=== PATIENT | female | born 1930 | race Caucasian/White ===

== ENCOUNTER 2017-09-17 08:34 | Outpatient (CLI) | payer MEDICARE, OTHER ==
--- NOTE | 2017-09-17 11:42 | RAD ---
RIGHT SECOND DIGIT THREE VIEWS: History: Ulceration. Comparison: None. FINDINGS: There is irregularity and erosion involving the tip of the distal phalanx suggesting osteomyelitis. S oft tissue ulceration is identified. 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 POS: [facility]
--- NOTE | 2017-09-17 15:40 | PRG ---
DATE OF SERVICE: 09/17/2017 CHIEF COMPLAINT: Ulcer to the right second toe. HISTORY OF PRESENT ILLNESS: An 87-year-old female, who presents to clinic today for concern of an ul ceration to the right second toe. She has had this for months. She states that she has been seeing Dr. Bedoya and that they were in some plan to do a repair of the hammertoe of the right second toe. When attempting to do a clearance from her primary care doctor, he was hoping that we can get the wou nd closed before they proceed with the surgery, so she was referred over to me at the wound clinic to evaluate this and see what can be done. Past medical history, past surgical history, medications, allergies, social history, and family histo ry can be reviewed in the paper chart of the wound care clinic. REVIEW OF SYSTEMS: Constitutional: Denies nausea, vomiting, fevers or chills. Neurologic: Denies numbness, tingling or burning sensations to the foot. Integumentary: There is an open sore to the r ight second toe. Musculoskeletal: Relates hammertoe deformities to both feet. PHYSICAL EXAMINATION: VITAL SIGNS: Temperature 97.8, pulse 60 beats per minute, respirations 18 per minute, blood pressure 189/82, blood sugar was 98. VASCULAR EXAM: Dorsalis pedis, posterior tibial pulses are palpable bilaterally. Immediate capillar y refill time to the distal aspect of toes. There is edema noted to the right second toe. No edema noted to the rest of the foot or leg bilaterally. NEUROLOGICAL: Light touch sensation grossly absent on cursory exam in clinic today. DERMATOLOGICAL: Ulceration of the right second toe, distal tip measuring 0.8 cm x 1 cm x 0.4 cm of d epth, does not probe to bone. There is some periwound erythema and edema. There is a hyperkeratotic covering and no drainage noted at this time. No purulence. There are hyperkeratoses on the left se cond toe with no underlying ulceration as well as on the right foot sub first and fifth metatarsal he ads and plantar heel. No underlying ulcerations on any of these areas. MUSCULOSKELETAL: There are rigid hammertoe deformities on the right foot and semi-rigid on the left foot digits 2 through 5. The right first MPJ is fused without any range of motion present. ASSESSMENT: 1. 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 2. Diabetes with peripheral neuropathy. 3. Hammertoe deformities. PLAN: 1. Discussed with the patient her condition and treatment options on the left foot that are semi-rig id. I believe that to decrease the pressure on the tip of the toe, she probably would benefit with a flexor tenotomy procedure. This is a pre-ulcerative lesion on this toe, although it is not open at this time. 2. Full thickness debridement of subcutaneous tissue layer of the right second toe ulceration, remov ing all nonviable tissue, biofilm, and hyperkeratosis from around the wound, utilizing dermal curette and 15 blade. This toe is rigid and would require an arthroplasty or arthrodesis of the proximal in terphalangeal joint in order to straighten, but due to the amount of swelling that she has in this to e, I am going to send her for an x-ray to evaluate for osteomyelitis. If there is any bone infection in this toe, may require amputation. In the meantime, we will start her with Aquacel AG dressing ch anges daily and follow up with her once we get the results of the x-rays. 3. I will have her scheduled appointment to follow up with me in 1 week in this clinic. 4. Pared all remaining calluses and noted there is no underlying ulcerations.
== END 2017-09-17 08:35 | disposition home or self-care (01) ==
LOC: WCC 08:34
PROVIDERS: ATTEND Podiatrist Foot & Ankle Surgery
DX: E11.621 Type 2 diabetes mellitus with foot ulcer (principal); E11.40 Type 2 diabetes mellitus with diabetic neuropathy, unspecified; L97.519 Non-pressure chronic ulcer of other part of right foot with unspecified severity; M20.40 Other hammer toe(s) (acquired), unspecified foot

== ENCOUNTER 2017-09-24 08:46 | Outpatient (CLI) | payer MEDICARE, OTHER ==
--- NOTE | 2017-09-24 12:27 | PRG ---
DATE OF SERVICE: 09/24/2017 SUBJECTIVE: An 87-year-old female who returns today for followup right second toe ulceration. She h as done well this last week with Aquacel AG and bandage. Denies any nausea, vomiting, fevers or chil ls, but had got x-rays after last visit. PHYSICAL EXAMINATION: Exam of the previous wounds. All wounds are closed. No hyperkeratosis. No d rainage, no periwound erythema, edema or warmth. X-RAYS: Reviewed films taken from last week, 3 views of the right toes which do show some erosion to the distal tuft of the distal phalanx of the right second digit, does not proceed any more proximal than the distal phalanx. ASSESSMENT: 1. 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 2. Diabetes with peripheral neuropathy. PLAN: Based on the x-ray findings, I was prepared to discuss with the patient the debridement of the bone including the partial amputation of the right second digit, though the wound having healed and the x-ray appears to be somewhat chronic in nature to the destruction of the bone, which could have b een previously. I am recommending to the patient a 2 month course of Augmentin and close monitoring. Should the wound reopen or become of more actively or acutely infected, then the amputation may be required. She will keep close monitoring on this and let us know if she has any problems, should als o be getting routine care with her nursing executive, Dr. Bedoya and will return to either myself or her bridget uld she have any problems. Also a prescription was given for Augmentin 875 mg 1 by mouth twice a day for 8 weeks, no refills.
[2017-09-28] MEDS ORDERED: Sodium Chloride 0.9% 15 ML NEB ONE (17:46)
== END 2017-09-24 08:47 | disposition home or self-care (01) ==
LOC: WCC 08:46
PROVIDERS: ATTEND Family Medicine
DX: E11.621 Type 2 diabetes mellitus with foot ulcer (principal); L97.514 Non-pressure chronic ulcer of other part of right foot with necrosis of bone; E11.42 Type 2 diabetes mellitus with diabetic polyneuropathy
CPT/HCPCS: 97602